=== PATIENT | female | born 1960 | race Caucasian/White ===

== ENCOUNTER 2017-03-25 17:34 | Emergency (ER) | payer MEDICARE ==
[2017-03-25 19:16] LABS: APPEARANCE,URINE CLEAR; BILIRUBIN,URINE NEGATIVE (NEGATIVE); GLUCOSE, URINE >=500 mg/dL (NEGATIVE); KETONES,URINE NEGATIVE (NEGATIVE); LEUKOCYTE ESTERASE,URINE NEGATIVE (NEGATIVE); NITRITE,URINE NEGATIVE (NEGATIVE); PROTEIN,URINE NEGATIVE (NEGATIVE); URINE SPECIFIC GRAVITY 1.028; UROBILINOGEN,URINE NEGATIVE mg/dL (<2.0)
--- NOTE | 2017-03-25 19:29 | ER Document Report ---
ED Medical Screen (RME) - General Mode of Arrival: Ambulatory Information source: Patient TRAVEL OUTSIDE OF THE [place] IN LAST 30 DAYS: No - HPI Patient complains to provider of: Lower Back Pain Onset: Other - 4 days ago Associated Symptoms: Other - see notes above <AMANDA PRATHER - Last Filed: 03/25/17 19:49> <LUCIA ELIZABETH - Last Filed: 03/25/17 21:13> - General Chief Complaint: Back Pain Stated Complaint: LOWER BACK PAIN Time Seen by Provider: 03/25/17 19:18 Notes: 56-year-old female with history of lupus, fibromyalgia, and rheumatoid arthritis presents to the ED complaining of lower right back pain that started 4 days ago. Patient reports that she has had pain like this before, but this is worse than what she is experienced in the past. Patient had a CT abdomen performed at [facility] 2 nights ago which was negative. Patient returned the next day for a MRI, but the patient does not know the results. Patient is additionally complaining of a fever, urinary incontinence, numbness to the right leg from the buttock down, and the inability to control her flatulence. ( AMANDA PRATHER) - Related Data Allergies/Adverse Reactions: No Known Allergies Allergy (Unverified 03/25/17 17:36) Home Medications: Current Home Medications Amitriptyline HCl 25 mg PO DAILY 03/25/17 [History] Aspirin [Aspirin 81 mg Chewable Tablet] 1 tab PO DAILY 03/25/17 [History] Atorvastatin Calcium 40 mg PO DAILY 03/25/17 [History] Canagliflozin [Invokana] 300 mg PO DAILY 03/25/17 [History] Cholecalciferol (Vitamin D3) [Vitamin D3] 1 tab PO DAILY 03/25/17 [History] Famotidine 1 tab PO DAILY 03/25/17 [History] Folic Acid 1 tab PO DAILY 03/25/17 [History] Gabapentin 1 tab PO QID 03/25/17 [History] Glimepiride 4 mg PO DAILY 03/25/17 [History] Hydroxychloroquine Sulfate [Plaquenil 200 mg Tablet] 1 tab PO BID 03/25/17 [ History] Levothyroxine Sodium [Synthroid 0.075 mg Tablet] 0.075 mg PO DAILY 03/25/17 [ History] Lisinopril/Hydrochlorothiazide [Lisinopril-Hctz 10-12.5 mg Tab] 0.5 tab PO DAILY 03/25/17 [History] Lorcaserin HCl [Belviq] 1 tab PO BID 03/25/17 [History] Magnesium Oxide [Mag-Oxide] 2 tab PO ASDIR PRN 03/25/17 [History] Meloxicam [Mobic] 1 tab PO DAILY 03/25/17 [History] Metformin HCl [Metformin HCl ER] 2 tab PO BID 03/25/17 [History] Methotrexate [Xatmep] 4 dose PO ASDIR PRN 03/25/17 [History] [place]-3 Fatty Acids/Fish Oil [[place] 3 Fish Oil Softgel] 1 tab PO DAILY 03/25/17 [History] Past Medical History - General Information source: Patient - Social History Frequency of alcohol use: None Drug Abuse: None Endocrine Medical History: Reports: Hx Diabetes Mellitus Type 2 Renal/ Medical History: Reports: Hx Kidney Stones. Denies: Hx Peritoneal Dialysis Musculoskeltal Medical History: Reports Hx Arthritis - rheumatoid Past Surgical History: Reports: Hx Cardiac Catheterization - no stents <AMANDA PRATHER - Last Filed: 03/25/17 19:49> Review of Systems - Review of Systems Constitutional: See HPI, Fever EENT: No symptoms reported Cardiovascular: No symptoms reported Respiratory: No symptoms reported Gastrointestinal: No symptoms reported Genitourinary: See HPI, Incontinence Female Genitourinary: No symptoms reported Musculoskeletal: See HPI, Back pain - lower Skin: No symptoms reported Hematologic/Lymphatic: No symptoms reported Neurological/Psychological: No symptoms reported -: Yes All other systems reviewed and negative <AMANDA PRATHER - Last Filed: 03/25/17 19:49> Physical Exam - General General appearance: Alert In distress: None - Respiratory Respiratory status: No respiratory distress Breath sounds: Normal - Cardiovascular Rhythm: Regular Heart sounds: Normal auscultation - Back Back: Tender - Tenderness to palpation of the lumbar spine and right paraspinal musculature. Muscles are tense to palpate.. No: Normal <AMANDA PRATHER - Last Filed: 03/25/17 19:49> - Vital signs Vitals: Temp Pulse Resp BP Pulse Ox 98.8 F 114 H 17 137/71 H 96 03/25/17 17:43 03/25/17 17:43 03/25/17 17:43 03/25/17 17:43 03/25/17 17:43 Course <AMANDA PRATHER - Last Filed: 03/25/17 19:49> - Laboratory Result Diagrams: 03/25/17 20:00 03/25/17 20:00 <LUCIA ELIZABETH - Last Filed: 03/25/17 21:13> - Re-evaluation Re-evalutation: 03/25/17 21:13 I personally performed the services described in the documentation, reviewed and edited the documentation which was dictated to the scribe in my presence, and it accurately records my words and actions. (LUCIA ELIZABETH) - Vital Signs Vital signs: Temp Pulse Resp BP Pulse Ox 98.8 F 114 H 17 137/71 H 96 03/25/17 17:43 03/25/17 17:43 03/25/17 17:43 03/25/17 17:43 03/25/17 17:43 - Laboratory Laboratory results interpreted by me: 03/25/17 03/25/17 03/25/17 18:40 20:00 20:00 RBC 3.71 L Hct 34.6 L RDW 15.2 H Chloride 95 L Glucose 222 H Urine Glucose (UA) >=500 H Scribe Documentation - Scribe Written by Tess:: Tess Hunter, 03/25/2017 2008 acting as scribe for :: Darwin <AMANDA PRATHER - Last Filed: 03/25/17 19:49>
[2017-03-25] MEDS ORDERED: MORPHINE SULFATE 10 MG/ML INJ IV ONE (19:30)
[2017-03-25 19:36] LABS: WBC,URINE 0-1 /HPF
[2017-03-25] MEDS ORDERED: ONDANSETRON HCL INJ/PF 4 MG/2 ML SDV IV ONE (20:12)
[2017-03-25 20:16] LABS: ABSOLUTE EOSINOPHILS # (AUTO) 0.1 10^3/uL (0.0-0.6); ABSOLUTE MONOCYTES (AUTO) 0.6 10^3/uL (0.1-1.4); ABSOLUTE NEUT (AUTO) 4.2 10^3/uL (1.7-8.2); BASOPHILS % (AUTO) 0.3 % (0-2); EOSINOPHILS % (AUTO) 1.4 % (0-6); HEMATOCRIT 34.6 % (36.0-47.0); HGB HCT DIFFERENCE 1.4; LYMPHOCYTES % (AUTO) 37.4 % (13-45); MEAN CORPUSCULAR HEMOGLOBIN 32.4 pg (27.0-33.4); MEAN CORPUSCULAR HGB CONC 34.7 g/dL (32.0-36.0); MEAN CORPUSCULAR VOLUME 93 fl (80-97); MONOCYTES % (AUTO) 7.9 % (3-13); RED BLOOD COUNT 3.71 10^6/uL (3.72-5.28); RED CELL DISTRIBUTION WIDTH 15.2 % (11.5-14.0)
--- NOTE | 2017-03-25 20:21 | ER Document Report ---
ED General - General Chief Complaint: Back Pain Stated Complaint: LOWER BACK PAIN Time Seen by Provider: 03/25/17 19:18 Mode of Arrival: Ambulatory Notes: Patient is a 56-year-old female that comes emergency department for chief complaint of right lower back pain. She denies injury to the area. She does have a history of back pain but normally is not medicated with pain medication. She states initially she was seen 2 days ago for this pain at [facility] , had a cat scan that showed no kidney stones or acute abdominal findings, she was seen again yesterday at the same location and had an MRI performed and she does not know the results of this yet. She denies fever, numbness, incontinence , dysuria, abdominal pain. Past medical history of kidney stones, type 2 diabetes, rheumatoid arthritis (on Plaquenil), hypertension. She states she was also placed on prednisone and Beeson by her primary care provider but she began vomiting from Beeson and her blood sugar went too high with the prednisone. She has not vomited since she took home Phenergan. She was prescribed Percocet yesterday but has not started taking this because she was taking the Beeson first. She has had a hysterectomy, appendectomy, bladder sling. She denies back surgeries. TRAVEL OUTSIDE OF THE [place] IN LAST 30 DAYS: No - Related Data Allergies/Adverse Reactions: No Known Allergies Allergy (Unverified 03/25/17 17:36) Home Medications: Current Home Medications Amitriptyline HCl 25 mg PO DAILY 03/25/17 [History] Aspirin [Aspirin 81 mg Chewable Tablet] 1 tab PO DAILY 03/25/17 [History] Atorvastatin Calcium 40 mg PO DAILY 03/25/17 [History] Canagliflozin [Invokana] 300 mg PO DAILY 03/25/17 [History] Cholecalciferol (Vitamin D3) [Vitamin D3] 1 tab PO DAILY 03/25/17 [History] Famotidine 1 tab PO DAILY 03/25/17 [History] Folic Acid 1 tab PO DAILY 03/25/17 [History] Gabapentin 1 tab PO QID 03/25/17 [History] Glimepiride 4 mg PO DAILY 03/25/17 [History] Hydroxychloroquine Sulfate [Plaquenil 200 mg Tablet] 1 tab PO BID 03/25/17 [ History] Levothyroxine Sodium [Synthroid 0.075 mg Tablet] 0.075 mg PO DAILY 03/25/17 [ History] Lisinopril/Hydrochlorothiazide [Lisinopril-Hctz 10-12.5 mg Tab] 0.5 tab PO DAILY 03/25/17 [History] Lorcaserin HCl [Belviq] 1 tab PO BID 03/25/17 [History] Magnesium Oxide [Mag-Oxide] 2 tab PO ASDIR PRN 03/25/17 [History] Meloxicam [Mobic] 1 tab PO DAILY 03/25/17 [History] Metformin HCl [Metformin HCl ER] 2 tab PO BID 03/25/17 [History] Methotrexate [Xatmep] 4 dose PO ASDIR PRN 03/25/17 [History] [place]-3 Fatty Acids/Fish Oil [[place] 3 Fish Oil Softgel] 1 tab PO DAILY 03/25/17 [History] Past Medical History - General Information source: Patient - Social History Smoking Status: Never Smoker Frequency of alcohol use: None Drug Abuse: None Lives with: Family Family History: Reviewed & Not Pertinent Patient has suicidal ideation: No Patient has homicidal ideation: No Endocrine Medical History: Reports: Hx Diabetes Mellitus Type 2 Renal/ Medical History: Reports: Hx Kidney Stones. Denies: Hx Peritoneal Dialysis Musculoskeltal Medical History: Reports Hx Arthritis - rheumatoid Past Surgical History: Reports: Hx Cardiac Catheterization - no stents Review of Systems - Review of Systems Constitutional: No symptoms reported EENT: No symptoms reported Cardiovascular: No symptoms reported Respiratory: No symptoms reported Gastrointestinal: No symptoms reported Genitourinary: No symptoms reported Female Genitourinary: No symptoms reported Musculoskeletal: See HPI Skin: No symptoms reported Hematologic/Lymphatic: No symptoms reported Neurological/Psychological: No symptoms reported Physical Exam - Vital signs Vitals: Temp Pulse Resp BP Pulse Ox 98.8 F 114 H 17 137/71 H 96 03/25/17 17:43 03/25/17 17:43 03/25/17 17:43 03/25/17 17:43 03/25/17 17:43 Interpretation: Normal - General General appearance: Alert, Anxious In distress: Mild - Patient appears uncomfortable, worse with movement - HEENT Head: Normocephalic, Atraumatic Eyes: Normal Pupils: PERRL - Respiratory Respiratory status: No respiratory distress Chest status: Nontender Breath sounds: Normal Chest palpation: Normal - Cardiovascular Rhythm: Regular Heart sounds: Normal auscultation Murmur: No - Abdominal Inspection: Normal Distension: No distension Bowel sounds: Normal Tenderness: Nontender Organomegaly: No organomegaly - Back Back: Tender - Tender mainly in the right paralumbar muscles extending towards the right gluteal muscles, also somewhat tender in the left paraspinal musculature. No saddle anesthesia. Pain with twisting motions. Ambulation is possible but with some pain. Normal distal neurovascular exam. No midline tenderness of the spine. - Extremities General upper extremity: Normal inspection, Nontender, Normal color, Normal ROM , Normal temperature General lower extremity: Normal inspection, Nontender, Normal color, Normal ROM , Normal temperature, Normal weight bearing. No: Pj's sign - Neurological Neuro grossly intact: Yes Cognition: Normal Orientation: AAOx4 [place] Coma Scale Eye Opening: Spontaneous [place] Coma Scale Verbal: Oriented [place] Coma Scale Motor: Obeys Commands [place] Coma Scale Total: 15 Speech: Normal Motor strength normal: LUE, RUE, LLE, RLE Sensory: Normal - Psychological Associated symptoms: Normal affect, Normal mood - Skin Skin Temperature: Warm Skin Moisture: Dry Skin Color: Normal Course - Re-evaluation Re-evalutation: Patient initially very uncomfortable, if she moves she appears to have a sharp pain. She is better when she is holding still. She does not have any midline tenderness of the back, it appears mainly to be over the right paraspinal, gluteal area. She also has some on the left. Difficult to evaluate straight leg raise. No numbness, normal temperature, normal distal neurovascular exam, normal lower extremity exam otherwise. Laboratory workup nonspecific. Urinalysis unremarkable. I was able to obtain patient's CAT scan and MRI report. CAT scan showing no acute abnormality including no ureteral/kidney obstruction or abnormality. MRI showing L3-L4, L4-L5, and L5-S1 degenerative changes including herniation, no spinal cord compression, no mass or evidence of abscess. Patient given the copy of her report. After valium, patient relaxed, states she actually feels much better than before. She is moving much more easily now. No neuroligical deficits. No concerning vital signs. Patient will be given valium, she states she already has good follow-up and can get spinal surgery and pain management referrals. Discussed medication precautions, return precautions, follow-up recommendations , patient states satisfaction and agreement. Patient can ambulate, however she asks for a walker prescription just in case to give her additional assistance. - Vital Signs Vital signs: Temp Pulse Resp BP Pulse Ox 98.8 F 98 20 113/65 96 03/25/17 17:43 03/25/17 23:16 03/25/17 23:16 03/25/17 23:16 03/25/17 23:16 - Laboratory Result Diagrams: 03/25/17 20:00 03/25/17 20:00 Laboratory results interpreted by me: 03/25/17 03/25/17 03/25/17 18:40 20:00 20:00 RBC 3.71 L Hct 34.6 L RDW 15.2 H Chloride 95 L Glucose 222 H Urine Glucose (UA) >=500 H Discharge - Discharge Clinical Impression: Lower back pain Qualifiers: Chronicity: acute Back pain laterality: bilateral Sciatica presence: with sciatica Sciatica laterality: sciatica of right side Qualified Code(s): M54.41 - Lumbago with sciatica, right side Condition: Stable Disposition: HOME, SELF-CARE Additional Instructions: Your MRI previously showed multilevel changes in your lower back. Take the prescribed medication, do not drink alcohol or combine with other sedating medication, do not drive on this medication. Apply heat to your lower back, use your TENS unit, follow-up closely with your primary care for potential spinal specialty and pain management referrals. Return to emergency department if you develop any concerning or worsening symptoms including numbness, loss of bowel or bladder control, fever, or any other concerning symptoms. Prescriptions: Diazepam [Valium 5 mg Tablet] 1 - 2 tab PO TID PRN #20 tablet PRN Reason: Walker [Folding Walker] 1 each MC ASDIR PRN #1 each PRN Reason: Referrals: ROSS KAY PA [Primary Care Provider] - Follow up as needed
[2017-03-25 20:33] LABS: ALANINE AMINOTRANSFERASE 41 U/L (9-52); ALBUMIN 4.8 g/dL (3.5-5.0); ALKALINE PHOSPHATASE 55 U/L (38-126); ANION GAP 13 (5-19); ASPARTATE AMINO TRANSFERASE 28 U/L (14-36); BILIRUBIN,DIRECT 0.4 mg/dL (0.0-0.4); BILIRUBIN,TOTAL 0.4 mg/dL (0.2-1.3); BLOOD UREA NITROGEN 16 mg/dL (7-20); CALCIUM 9.8 mg/dL (8.4-10.2); CARBON DIOXIDE 30 mmol/L (22-30); CHLORIDE 95 mmol/L (98-107); CREATININE RESULT 0.89 mg/dL (0.52-1.25); GLUCOSE 222 mg/dL (75-110); POTASSIUM 4.5 mmol/L (3.6-5.0); SODIUM 138.2 mmol/L (137-145); TOTAL PROTEIN 7.3 g/dL (6.3-8.2)
[2017-03-25] MEDS ORDERED: NORMAL SALINE 1000 ML 1,000 ML IV ONE (20:54)
[2017-03-25] MEDS ORDERED: DIAZEPAM INJ 10 MG/2 ML DISP.SYRIN IV ONE ×2 (21:34→22:45)
[2017-03-25] MEDS ORDERED: DIAZEPAM INJ 10 MG/2 ML DISP.SYRIN ONE (22:08)
[2017-03-25 23:17] VITALS: BP 113/65
== END 2017-03-25 23:15 | disposition home or self-care (01) ==
LOC: ER 17:34
DX: M54.41 Lumbago with sciatica, right side (principal); E11.9 Type 2 diabetes mellitus without complications; M06.9 Rheumatoid arthritis, unspecified; I10 Essential (primary) hypertension; Z79.899 Other long term (current) drug therapy; Z87.442 Personal history of urinary calculi
CPT/HCPCS: 99283; 96361; 96374; 96375; 36415; 85025; 80053; 81001; J3360; J2270; J2405; J7030